=== PATIENT | female | born 1960 | race Caucasian/White ===

== ENCOUNTER 2016-09-11 05:50 | Emergency (ER) | payer OTHER ==
[2016-09-11 05:59] VITALS: TEMP 98.4
[2016-09-11] MEDS ORDERED: NS 500 ML IV ONE (06:36)
[2016-09-11] MEDS ORDERED: IPRATROPIUM/ALBUTEROL 3 ML DEYVIAL IH ONE (07:05)
--- NOTE | 2016-09-11 07:09 | EDPHY ---
H & P Stated Complaint: increased SOB at night, cough Time Seen by Provider: 09/11/16 06:52 HPI/ROS: CHIEF COMPLAINT: SHORTNESS OF BREATH HISTORY OF PRESENT ILLNESS: The patient is a 56-year-old female who comes to the emergency department complaining of increasing shortness of breath over the last 3-4 weeks. She states that it is worse when she lies flat at night or when she exerts herself. She has not had a fever. She has had a mild dry cough. She does have occasional wheezing particularly at night. She does have a history of childhood asthma that she said she outgrew in 6th grade. Her symptoms seem to improve with sitting up and moving around a little bit. She denies having any chest pain. She has not had any leg swelling. No headache. No trauma. No back or neck pain. No neurologic symptoms. No abdominal pain or GI symptoms. REVIEW OF SYSTEMS: Constitutional: denies: chills, fever, recent illness, recent injury EENTM: denies: blurred vision, double vision, nose congestion Respiratory:see HPI Cardiac: denies: chest pain, irregular heart rate, lightheadedness, palpitations Gastrointestinal/Abdominal: denies: abdominal pain, diarrhea, nausea, vomiting, blood streaked stools Genitourinary: denies: dysuria, frequency, hematuria, pain Musculoskeletal: denies: joint pain, muscle pain Skin: denies: lesions, rash, jaundice, bruising Neurological: denies: headache, numbness, paresthesia, tingling, dizziness, weakness Hematologic/Lymphatic: denies: blood clots, easy bleeding, easy bruising Immunologic/allergic: denies: HIV/AIDS, transplant EXAM: GENERAL: Well-appearing, well-nourished and in no acute distress. HEAD: Atraumatic, normocephalic. EYES: Pupils equal round and reactive to light, extraocular movements intact, sclera anicteric, conjunctiva are normal. ENT: TMs normal, nares patent, oropharynx clear without exudates. Moist mucous membranes. NECK: Normal range of motion, supple without lymphadenopathy or JVD. LUNGS: Mild expiratory wheezing also rhonchi both bases, breath sounds equal HEART: Regular rate and rhythm without murmurs, rubs or gallops. ABDOMEN: Soft, nontender, normoactive bowel sounds. No guarding, no rebound. No masses appreciated. BACK: No CVA tenderness, no spinal tenderness, step-offs or deformities EXTREMITIES: Normal range of motion, no pitting or edema. No clubbing or cyanosis. NEUROLOGICAL: Cranial nerves II through XII grossly intact. Normal speech, normal gait. 5/5 strength, normal movement in all extremities, normal sensation PSYCH: Normal mood, normal affect. SKIN: Warm, dry, normal turgor, no visible rashes or lesions. Source: Patient Exam Limitations: No limitations - Personal History Tetanus Vaccine Date: 01/01/11 - Medical/Surgical History Hx Asthma: No Hx Chronic Respiratory Disease: No Hx Diabetes: No Hx Cardiac Disease: Yes Hx Renal Disease: No Hx Cirrhosis: No Hx Alcoholism: No Hx HIV/AIDS: No Hx Splenectomy or Spleen Trauma: Yes Other PMH: htn, hypothyroid, splenectomy and IR for hemangioma. thorocotomy and benign spinal tumor 2001 - Family History Significant Family History: No pertinent family hx - Social History Smoking Status: Never smoked Alcohol Use: Sober Drug Use: None Constitutional: Initial Vital Signs Temperature (C) 36.9 C 09/11/16 05:57 Heart Rate 69 09/11/16 05:57 Respiratory Rate 20 09/11/16 05:57 Blood Pressure 151/108 H 09/11/16 05:57 O2 Sat (%) 93 09/11/16 05:57 O2 Delivery Mode Room Air Allergies/Adverse Reactions: No Known Allergies Allergy (Verified 09/11/16 05:53) Home Medications: Medication Instructions Recorded AZITHROMYCIN [Z-PACK] 250 mg PO DAILY #4 tab 09/11/16 BIOTIN 09/11/16 Co Q-10 200 mg 09/11/16 Estrogel 09/11/16 Garlic 09/11/16 Losartan Potassium 09/11/16 Milk Thistle 09/11/16 Psyllium 09/11/16 Synthroid 09/11/16 Turmeric 09/11/16 Xanax 1 MG (*) 09/11/16 Medical Decision Making - Diagnostics EKG Interpretation: An EKG obtained and was read and documented in trace view. Please see trace view for full reading and report. Sinus rhythm, no acute ischemic changes Imaging: X-ray: chest x-ray was obtained. I viewed the images myself on the PACS system. My interpretation of the images is: Consistent with bronchitis. The radiologist interpretation is pending. ED Course/Re-evaluation: 8:10 a.m. we discussed the patient's lab work which is reassuring. Also her x- ray. Will treat her with azithromycin. Clinically she appears to have bronchitis or pneumonia. She has rhonchi both bases. Her wheezing did resolve with albuterol. She has an inhaler in her purse that she will use. She was concerned because she exposed her grandson 3 days ago in [place]. She will call her daughter to warn her. Differential Diagnosis: Partial list of the Differential diagnosis considered include but were not limited to; bronchitis, pneumonia, reactive airway disease and although unlikely based on the history and physical exam, I also considered PE, CHF, acute coronary disease, dissection. I discussed these differential diagnoses and the plan with the patient as well as the usual and expected course. The patient understands that the diagnosis is provisional and that in medicine we are not always correct and that further workup is often warranted. Usual and customary warnings were given. All of the patient's questions were answered. The patient was instructed to return to the emergency department should the symptoms at all worsen or return, otherwise to followup with the physician as we discussed. - Data Points Laboratory Results: Laboratory Results 09/11/16 07:15 09/11/16 07:15 09/11/16 07:15 WBC 7.81 10^3/uL (3.80-9.50) RBC 4.46 10^6/uL (4.18-5.33) Hgb 15.1 g/dL (12.6-16.3) Hct 44.7 % (38.0-47.0) MCV 100.2 H fL (81.5-99.8) MCH 33.9 pg (27.9-34.1) MCHC 33.8 g/dL (32.4-36.7) RDW 16.1 H % (11.5-15.2) Plt Count 210 10^3/uL (150-400) MPV 10.1 fL (8.7-11.7) Neut % (Auto) 46.1 % (39.3-74.2) Lymph % (Auto) 33.2 % (15.0-45.0) Kaufman % (Auto) 10.1 % (4.5-13.0) Eos % (Auto) 9.3 H % (0.6-7.6) Baso % (Auto) 1.2 % (0.3-1.7) Nucleat RBC Rel Count 0.0 % (0.0-0.2) Absolute Neuts (auto) 3.60 10^3/uL (1.70-6.50) Absolute Lymphs (auto) 2.59 10^3/uL (1.00-3.00) Absolute Monos (auto) 0.79 10^3/uL (0.30-0.80) Absolute Eos (auto) 0.73 H 10^3/uL (0.03-0.40) Absolute Basos (auto) 0.09 10^3/uL (0.02-0.10) Absolute Nucleated RBC 0.00 10^3/uL (0-0.01) Immature Gran % 0.1 % (0.0-1.1) Immature Gran # 0.01 10^3/uL (0.00-0.10) PT 12.8 SEC (12.0-15.0) INR 0.97 (0.83-1.16) APTT 31.6 SEC (23.0-38.0) D-Dimer 0.48 ug/mLFEU (0.00-0.50) Sodium 144 mEq/L (134-144) Potassium 4.0 mEq/L (3.5-5.2) Chloride 109 mEq/L (97-110) Carbon Dioxide 25 mEq/l (22-31) Anion Gap 10 mEq/L (8-16) BUN 12 mg/dL (7-23) Creatinine 0.5 L mg/dL (0.6-1.0) Estimated GFR > 60 Glucose 122 H mg/dL (70-100) Calcium 9.4 mg/dL (8.5-10.4) Creatine Kinase 41 IU/L (0-156) CK-MB (CK-2) Fraction 0.34 ng/mL (0-3.19) Troponin I < 0.012 ng/mL (0-0.034) NT-Pro-B Natriuret Pep 128 H pg/mL (0-125) Medications Given: Discontinued Medications Albuterol/Ipratropium (Duoneb) 3 ml IH EDNOW ONE Stop: 09/11/16 07:06 Last Admin: 09/11/16 07:25 Dose: 3 ml Sodium Chloride (Ns) 500 mls @ 0 mls/hr IV ONCE ONE PRN Reason: As Directed Stop: 09/11/16 06:37 Last Admin: 09/11/16 07:17 Dose: 500 mls Departure - Departure Disposition: Home, Routine, Self-Care Clinical Impression: Acute bronchitis Qualifiers: Bronchitis organism: unspecified organism Qualifier Code: (J20.9) Acute bronchitis, unspecified Reactive airway disease Qualifiers: Asthma severity: mild intermittent Asthma complication type: uncomplicated Qualifier Code: (J45.20) Mild intermittent asthma, uncomplicated Condition: Fair Instructions: Acute Bronchitis (ED), Reactive Airways Disease (ED) Additional Instructions: Use your albuterol inhaler as needed as discussed. Referrals: Radha Montes MD [Primary Care Provider] - As per Instructions Prescriptions: AZITHROMYCIN [Z-PACK] 250 mg PO DAILY #4 tab
--- NOTE | 2016-09-11 07:19 | CPEKG ---
Heart Rate: 63 RR Interval: 952 P-R Interval: 156 QRSD Interval: 106 QT Interval: 436 QTC Interval: 447 P Johnson: -6 QRS Johnson: 15 T Wave Johnson: 32 EKG Severity - NORMAL ECG - EKG Impression: SINUS RHYTHM Electronically Signed By: Kevin Nolan 11-Sep-2016 07:28:25
[2016-09-11 07:24] LABS: % IMMATURE GRANULYOCYTES 0.1 % (0.0-1.1); ABSOLUTE IMMATURE GRANULOCYTES 0.01 10^3/uL (0.00-0.10); ADD DIFF? NO; ADD MORPH? NO; ADD SCAN? NO; ATYPICAL LYMPHOCYTE FLAG 0 (0-99); FRAGMENT RBC FLAG 0 (0-99); HEMATOCRIT 44.7 % (38.0-47.0); HEMOGLOBIN 15.1 g/dL (12.6-16.3); LEFT SHIFT FLG 0 (0-99); LIPEMIA HEMOLYSIS FLAG 90 (0-99); MEAN CELL HEMOGLOBIN 33.9 pg (27.9-34.1); MEAN CELL HEMOGLOBIN CONCENTR. 33.8 g/dL (32.4-36.7); MEAN CELL VOLUME 100.2 fL (81.5-99.8); MEAN PLATELET VOLUME 10.1 fL (8.7-11.7); PLATELET CLUMPS FLAG 0 (0-99); PLATELET COUNT 210 10^3/uL (150-400); RED BLOOD CELL COUNT 4.46 10^6/uL (4.18-5.33); RED CELL DISTRIBUTION WIDTH 16.1 % (11.5-15.2)
[2016-09-11 07:34] LABS: ANION GAP 10 mEq/L (8-16); CALCIUM 9.4 mg/dL (8.5-10.4); CARBON DIOXIDE 25 mEq/l (22-31); CHLORIDE 109 mEq/L (97-110); CREATININE 0.5 mg/dL (0.6-1.0); GLOMERULAR FILTRATION RATE > 60; GLUCOSE 122 mg/dL (70-100); SODIUM 144 mEq/L (134-144)
[2016-09-11 07:39] LABS: INR 0.97 (0.83-1.16); PROTIME(PATIENT) 12.8 SEC (12.0-15.0)
[2016-09-11 07:40] LABS: APTT 31.6 SEC (23.0-38.0)
[2016-09-11 07:42] VITALS: RESP 16
[2016-09-11 07:47] LABS: CREATINE KINASE-MB FRACTION 0.34 ng/mL (0-3.19); TROPONIN I < 0.012 ng/mL (0-0.034)
[2016-09-11] MEDS ORDERED: AZITHROMYCIN 250 MG TAB PO ONE (08:09)
[2016-09-11 08:21] VITALS: BP 155/111; PULSE 74; O2SAT 95
--- NOTE | 2016-09-11 10:55 | DX ---
Chest, One View Portable at 0653 hours History: Chest pain. Comparison: September 10, 2015 Findings: Cardiac silhouette is normal in size. Patchy scarring in the left lower lobe. No pneumonia , congestive heart failure, pleural effusion, or pneumothorax. Impression: 1. Patchy scarring in the left lower lobe. 2. No focal pneumonia or congestive heart failure. 3. Consider chest two views when the patient's medical condition permits.
== END 2016-09-11 08:22 | disposition home or self-care (01) ==
DX: J20.9 Acute bronchitis, unspecified (principal); J45.20 Mild intermittent asthma, uncomplicated; I10 Essential (primary) hypertension

== ENCOUNTER → 2016-09-20 | Outpatient (CLI) | payer OTHER ==
--- NOTE | 2016-09-20 11:51 | MA ---
Screening Digital Mammogram With Tomosynthesis Clinical Indications: Routine screening. Technique: Standard digital cephalocaudal and tomosynthesis mediolateral oblique projections are obt ained. The digital images were processed by the [employer] computer aided detection system. Comparison: July 2015, April 2014, February 2012 and August 1999 and Breast density: B; There are scattered fibroglandular densities. Findings: CAD was reviewed. No suspicious findings are identified. Impression: Negative mammogram. BI-RADS 1. Recommendation: Routine screening is recommended in one year. [facility] will send a result letter to the patient. Negative mammography should not preclude additional workup of a clinically suspicious finding. The patient's information is entered into a reminder system with a target due date for her next mammo gram.
== END ==
LOC: FIMAGING 10:43
DX: Z12.31 Encounter for screening mammogram for malignant neoplasm of breast (principal)
CPT/HCPCS: G0202

== ENCOUNTER 2017-09-12 19:08 | Emergency (ER) | payer OTHER ==
[2017-09-12] MEDS ORDERED: NS 1,000 ML IV ONE (19:49)
--- NOTE | 2017-09-12 19:49 | EDPHY ---
H & P Time Seen by Provider: 09/12/17 19:30 HPI/ROS: Chief complaint. Slurred speech HPI. 57-year-old female presents with slurred speech that began sometime earlier today. Her called her at noon and she did not answer and then called her about 4:00 p.m. and she did answer. He got home and found the patient to have slurred speech. The patient admits to drinking alcohol today. However earlier this week she had markedly elevated blood pressure and her PCP doubled her blood pressure medication caution her that her blood pressure was high enough to have a stroke. The patient has no chest discomfort or trouble breathing. No abdominal pain. She has been ambulatory. She has no focal weakness or paresthesias to arms or legs. She has no headache. No change in her vision. ROS Constitutional. no fever/chills, no weakness Eyes. no problems with vision ENT. no sore throat, no nasal drainage Cardiovascular. no chest pain Respiratory. no shortness of breath, no cough Abdominal. no abdominal pain, no nausea/vomiting, no diarrhea . no problems urinating MS. no calf pain/swelling, no neck/back pain, no joint pain Skin. no rash Lymph. no swollen glands Neuro. Slurred speech Past Medical/Surgical History: Hypertension and recent alcohol consumption Social History: Alcohol, nonsmoker, Smoking Status: Never smoked Physical Exam: General Appearance: Alert well-developed female mild distress vital signs are stable Eyes: Pupils equal and round no pallor or injection. ENT, Mouth: Mucous membranes are moist. Respiratory: There are no retractions, lungs are clear to auscultation. Cardiovascular: Regular rate and rhythm. Gastrointestinal: Abdomen is soft and nontender, no masses, bowel sounds normal. Neurological: Awake and alert, sensory and motor exams grossly normal. Speech is slightly slurred. Cranial nerves are intact. There is no pronator drift. [id number] are intact bilaterally. [id number] is intact. Skin: Warm and dry, no rashes. Musculoskeletal: Neck is supple nontender. Extremities symmetrical, full range of motion. Psychiatric: Patient is oriented X 3, there is no agitation. Constitutional: Initial Vital Signs Temperature (C) 36.9 C 09/12/17 19:13 Heart Rate 91 09/12/17 19:13 Respiratory Rate 18 09/12/17 19:13 Blood Pressure 149/102 H 09/12/17 19:13 O2 Sat (%) 92 09/12/17 19:13 O2 Delivery Mode Room Air O2 (L/minute) 2 Allergies/Adverse Reactions: No Known Allergies Allergy (Verified 09/11/16 05:53) Home Medications: Medication Instructions Recorded AZITHROMYCIN [Z-PACK] 250 mg PO DAILY #4 tab 09/11/16 BIOTIN 09/11/16 Co Q-10 200 mg 09/11/16 Estrogel 09/11/16 Garlic 09/11/16 Losartan Potassium 09/11/16 Milk Thistle 09/11/16 Psyllium 09/11/16 Synthroid 09/11/16 Turmeric 09/11/16 Xanax 1 MG (*) 09/11/16 Medical Decision Making - Diagnostics EKG Interpretation: EKG interpreted by me shows normal sinus rhythm with normal interval. There is left axis deviation. QRS is normal there is no significant ST elevation or depression. No arrhythmia. The rate is 76 Imaging Results: Imaging Impressions Head CT 09/12/17 19:50 Impression: 1. No significant intracranial abnormality seen. If symptoms worsen, additional imaging may be necessary. Findings discussed with Miguel Ángel Florence M.D. at 20:39 hour, 09/12/2017. Noncontrast head CT is normal. Reviewed by me and discussed with Dr. Reid Procedures: IV normal saline, monitor ED Course/Re-evaluation: I consulted and discussed the case with [facility] who recommends noncontrast head CT at this point. Should the alcohol not be felt to be a problem the recommendation is admission and MRI Re-evaluation at 9:20 p.m.. Patient is stable. Her slurred speech is resolved. Neurologically intact Patient, her , and I discussed imaging lab EKG findings. We discussed treatment plan including criteria for return importance of follow-up and further evaluation. She expresses understanding and agreement On re-evaluations patient's slurring is resolving. Differential Diagnosis: I considered CVA in terms of intracranial bleeding or acute CVA. I think that the patient's symptoms are due to alcohol intoxication. As she becomes more sober her slurred speech is resolving. She sosa remains neurologically intact - Data Points Laboratory Results: Laboratory Results 09/12/17 19:40 09/12/17 19:40 09/12/17 09/12/17 09/12/17 20:30 19:40 19:40 WBC 7.82 10^3/uL 10^3/uL (3.80-9.50) RBC 5.15 10^6/uL 10^6/uL (4.18-5.33) Hgb 16.9 g/dL H g/dL (12.6-16.3) Hct 48.3 % H % (38.0-47.0) MCV 93.8 fL fL (81.5-99.8) MCH 32.8 pg pg (27.9-34.1) MCHC 35.0 g/dL g/dL (32.4-36.7) RDW 14.2 % % (11.5-15.2) Plt Count 262 10^3/uL 10^3/uL (150-400) MPV 9.2 fL fL (8.7-11.7) Neut % (Auto) 34.8 % L % (39.3-74.2) Lymph % (Auto) 55.5 % H % (15.0-45.0) Mingo % (Auto) 5.6 % % (4.5-13.0) Eos % (Auto) 2.4 % % (0.6-7.6) Baso % (Auto) 1.4 % % (0.3-1.7) Nucleat RBC Rel Count 0.0 % % (0.0-0.2) Absolute Neuts (auto) 2.72 10^3/uL 10^3/uL (1.70-6.50) Absolute Lymphs (auto) 4.34 10^3/uL H 10^3/uL (1.00-3.00) Absolute Monos (auto) 0.44 10^3/uL 10^3/uL (0.30-0.80) Absolute Eos (auto) 0.19 10^3/uL 10^3/uL (0.03-0.40) Absolute Basos (auto) 0.11 10^3/uL H 10^3/uL (0.02-0.10) Absolute Nucleated RBC 0.00 10^3/uL 10^3/uL (0-0.01) Immature Gran % 0.3 % % (0.0-1.1) Immature Gran # 0.02 10^3/uL 10^3/uL (0.00-0.10) PT 13.4 SEC SEC (12.0-15.0) INR 1.00 (0.83-1.16) Sodium 148 mEq/L H mEq/L (135-145) Potassium 4.4 mEq/L mEq/L (3.5-5.2) Chloride 106 mEq/L mEq/L (97-110) Carbon Dioxide 22 mEq/l mEq/l (22-31) Anion Gap 20 mEq/L H mEq/L (8-16) BUN 15 mg/dL mg/dL (7-23) Creatinine 0.8 mg/dL mg/dL (0.6-1.0) Estimated GFR > 60 Glucose 96 mg/dL mg/dL (70-100) Calcium 9.4 mg/dL mg/dL (8.5-10.4) Troponin I < 0.012 ng/mL ng/mL (0.000-0.034) Ethyl Alcohol 334 mg/dL H mg/dL (0-10) Medications Given: Discontinued Medications Sodium Chloride (Ns) 1,000 mls @ 0 mls/hr IV ONCE ONE; Wide Open PRN Reason: Protocol Stop: 09/12/17 19:50 Last Admin: 09/12/17 20:42 Dose: 1,000 mls Departure - Departure Disposition: Home, Routine, Self-Care Clinical Impression: Alcohol intoxication Qualifiers: Complication of substance-induced condition: uncomplicated Qualified Code(s): F10.920 - Alcohol use, unspecified with intoxication, uncomplicated Condition: Good Instructions: Alcohol Intoxication (ED) Additional Instructions: Continue regular medications and double the blood pressure medication that Dr. Montes recommended. You may take it 1 pill twice daily or both pills in the morning and she recommended. Referrals: Radha Montes MD [Primary Care Provider] - 2-3 days, call for appt.
[2017-09-12 19:55] LABS: PLATELET COUNT 262 10^3/uL (150-400)
[2017-09-12] MEDS ORDERED: IOPAMIDOL (ISOVUE 370) 100 ML BTL IV ONE (20:12)
--- NOTE | 2017-09-12 20:42 | CPEKG ---
Heart Rate: 76 RR Interval: 789 P-R Interval: 168 QRSD Interval: 96 QT Interval: 432 QTC Interval: 486 P Maybeury: 55 QRS Maybeury: 1 T Wave Maybeury: 51 EKG Severity - BORDERLINE ECG - EKG Impression: SINUS RHYTHM EKG Impression: BORDERLINE PROLONGED QT INTERVAL Electronically Signed By: Miguel Ángel Florence 12-Sep-2017 23:29:32
[2017-09-12 20:55] LABS: PROTIME(PATIENT) 13.4 SEC (12.0-15.0)
[2017-09-12 21:08] VITALS: O2SAT 94
[2017-09-12 21:53] VITALS: BP 128/77; PULSE 82; RESP 16; TEMP 98.2
== END 2017-09-12 21:53 | disposition home or self-care (01) ==
LOC: EEVIPCON 19:08
DX: F10.920 Alcohol use, unspecified with intoxication, uncomplicated (principal); E86.9 Volume depletion, unspecified; I10 Essential (primary) hypertension
CPT/HCPCS: G0480; Q9967

== ENCOUNTER → 2017-12-13 | Outpatient (CLI) | payer OTHER | LOC: FIMAGING 14:38 | PROVIDERS: ATTEND Family Medicine | DX: Z12.31 Encounter for screening mammogram for malignant neoplasm of breast (principal) ==

== ENCOUNTER 2018-01-13 10:39 | Emergency (ER) | payer OTHER ==
[2018-01-13] MEDS ORDERED: TRANEXAMIC ACID 1,000 MG/10 ML VIAL TP ONE (11:06)
--- NOTE | 2018-01-13 11:10 | EDPHY ---
H & P Stated Complaint: epistaxis Time Seen by Provider: 01/13/18 11:07 HPI/ROS: HPI: This is a 57-year-old female who presents with Chief Complaint: Nosebleed Location: Right nostril Quality: Bleeding Duration: Since 6:00 a.m. Approximately 5 hr Signs and Symptoms: no fever, no nausea, no vomiting, no photophobia, no noise sensitivity, no neck stiffness, no ear pain, no tinnitus, no nasal congestion, no sinus pressure, no weakness, no radiation, no aura, + nasal dryness Timing: Acute, intermittent episodes Severity: [id number] Context: Patient presents with waking up this morning with a nosebleed out of her right nostril since around 6:00 a.m. this morning, approximately 5 hr prior to arrival. Patient reports that the bleeding will stop for 15-20 minutes and then restart again. She has tried to use direct pressure and Afrin without cessation of bleeding. Patient reports that she had a similar incident of bleeding out of her right nostril yesterday but it stopped after a few minutes with direct pressure and Afrin. Yesterday her nose bleed started after blowing her nose. She has been complaining for the last several days of nasal dryness. Reports that her has had nasal dryness as well with intermittent nosebleeds. Takes baby aspirin daily. Denies any dizziness/shortness of breath/ chest pain. Patient does suffer from high blood pressure and did not take her blood pressure medications this morning. No prior history of nose bleeds in the past. Modifying Factors: See above Comment: ROS: see HPI Constitutional: No fever, no chills, no weight loss Eyes: No blurred vision Respiratory: No shortness of breath, no cough Cardiovascular: No chest pain, no palpitations Gastrointestinal: No nausea, no vomiting, no diarrhea, no hematemesis, no blood in stool Genitourinary: No dysuria, no blood in urine Extremities: No myalgias, no edema Neurologic: No weakness, no numbness Skin: No rashes, no petechiae Hematologic: No bruising, + bleeding MEDICAL/SURGICAL/SOCIAL HISTORY: Medical/surgical history: htn, hypothyroid, splenectomy and IR for hemangioma thorocotomy and benign spinal tumor 2001 Social history: . Never smoked. Family history noncontributory. CONSTITUTIONAL: Extremely pleasant middle-aged white female, at bedside , awake and alert, no obvious distress HEENT: Atraumatic and normocephalic, PERRL, EOMI. Nose shows nasal clamp in place. Nares patent; right 6'oclock anterior small bleed noted; no rhinorrhea; no nasal mucosal edema. Tympanic membranes clear. Oropharynx clear, no exudate and moist pink mucosa. Airway patent. No lymphadenopathy. No meningismus. NEUROLOGICAL: no focal neuro deficits. GCS 15. SKIN: Warm and dry, no erythema. no rash. Good capillary refill. Source: Patient Exam Limitations: No limitations - Personal History Current Tetanus/Diphtheria Vaccine: Yes Current Tetanus Diphtheria and Acellular Pertussis (TDAP): Yes Tetanus Vaccine Date: 01/01/11 - Medical/Surgical History Hx Asthma: Yes Hx Chronic Respiratory Disease: No Hx Diabetes: No Hx Cardiac Disease: No Hx Renal Disease: No Hx Cirrhosis: No Hx Alcoholism: Yes Hx HIV/AIDS: No Hx Splenectomy or Spleen Trauma: Yes Other PMH: htn, hypothyroid, splenectomy and IR for hemangioma. thorocotomy and benign spinal tumor 2001 - Social History Smoking Status: Never smoked Constitutional: Initial Vital Signs Temperature (C) 36.8 C 01/13/18 10:59 Heart Rate 96 01/13/18 10:59 Respiratory Rate 16 01/13/18 10:59 Blood Pressure 148/107 H 01/13/18 10:59 O2 Sat (%) 96 01/13/18 10:59 O2 Delivery Mode Room Air Allergies/Adverse Reactions: No Known Allergies Allergy (Verified 09/11/16 05:53) Home Medications: Medication Instructions Recorded BIOTIN 09/11/16 Co Q-10 200 mg 09/11/16 Estrogel 09/11/16 Garlic 09/11/16 Losartan Potassium 09/11/16 Milk Thistle 09/11/16 Psyllium 09/11/16 Synthroid 09/11/16 Turmeric 09/11/16 Xanax 1 MG (*) 09/11/16 Medical Decision Making Procedures: Procedure: Epistaxis control. After verbal consent was obtained, the patient was anesthetized with Lidocaine. The anterior epistaxis was identified. The patient was treated with TXa and nasal packing. Following the procedure the patient was re-examined and the bleeding was well controlled. The patient tolerated the procedure well. The procedure was performed by myself. ED Course/Re-evaluation: Nose bleed secondary to nasal dryness and blowing of nose Advised patient to take her blood pressure medications when she arrives home. Anterior epistaxis stopped with TXA and packing. This patient was seen under the supervision of my secondary supervising physician. I evaluated care for this patient independently. Differential Diagnosis: Differential diagnosis includes but is not limited to facial trauma, coagulopathy, nasal tumor, hemophilia, arteriovenous malformation. - Data Points Medications Given: Discontinued Medications Tranexamic Acid (Cyklokapron) 500 mg TP EDNOW ONE Stop: 01/13/18 11:07 Last Admin: 01/13/18 11:12 Dose: 500 mg Departure - Departure Disposition: Home, Routine, Self-Care Clinical Impression: Right-sided epistaxis Condition: Good Instructions: Nosebleed (ED) Additional Instructions: Please keep packing in the right nostril for 48 hr. Do not blow your nose/sniff and try not to sneeze for 3 days. Please avoid any strenuous activity for 3 days. Apply Vaseline to your left nostril as needed for nasal dryness. If nose starts to bleed again, apply nasal clamp for 30 minutes-1 hour. If nose bleeding does not stop after 1 hr, return to the emergency room for further evaluation and treatment. Follow-up with ear nose and throat as needed. Referrals: Radha Montes MD [Primary Care Provider] - As per Instructions Cami Sánchez MD [Medical Doctor] - As per Instructions
[2018-01-13 12:24] VITALS: BP 152/108
== END 2018-01-13 12:24 | disposition home or self-care (01) ==
DX: R04.0 Epistaxis (principal); J45.909 Unspecified asthma, uncomplicated; I10 Essential (primary) hypertension

== ENCOUNTER → 2018-12-18 | Outpatient (CLI) | payer OTHER | LOC: FIMAGING 14:17 | PROVIDERS: ATTEND Family Medicine | DX: Z12.31 Encounter for screening mammogram for malignant neoplasm of breast (principal) ==